=== PATIENT | male | born 1955 | race Caucasian/White ===

== ENCOUNTER → 2018-12-14 | Outpatient (CLI) | payer OTHER | LOC: ULTRA 14:54 | DX: I86.1 Scrotal varices (principal); N50.3 Cyst of epididymis; N43.3 Hydrocele, unspecified ==

== ENCOUNTER → 2019-03-05 | Outpatient (CLI) | payer OTHER | LOC: CAT 14:51 | DX: Z13.6 Encounter for screening for cardiovascular disorders (principal); E78.00 Pure hypercholesterolemia, unspecified; I25.10 Atherosclerotic heart disease of native coronary artery without angina pectoris ==